=== PATIENT | male | born 1940 | race American Indian/Alaskan Native ===

== ENCOUNTER 2020-05-18 06:24 | Emergency (ER) | payer MEDICARE ==
--- NOTE | 2020-05-18 06:44 | Emergency Department Report ---
ED CPR HPI - General Stated Complaint: CARDIAC ARREST - History of Present Illness Initial Comments: This is a 79[facility]-old [facility] resident who was not seen since yesterday as per report of paramedics from [facility] staff. Patient was found by [facility] staff with no signs of life. I do not know if CPR was initiated. Medics responded quickly to the nearby [facility]. They state they found the patient with fixed and dilated pupils, in asystole, diagnosed with no signs of life. Not withstanding this, full resuscitative efforts ensued. After 4 rounds of epinephrine on more than 20 minutes in transport, medics report the patient remained in asystole with fixed and dilated pupils and never sustained any return of spontaneous circulation. 1 arrival there are no signs of life. The patient is asystole. There are fixed and dilated pupils. He was pronounced DOA. Further resuscitative efforts were deemed futile. Complaint: found unresponsive -: hour(s) (Likely), unknown Place: [facility] AED Applied by Bystander/Carrier Operator: No Initial Findings in the Field: systole (Asystole with no signs of life) ROSC in the Field: No Associated Injuries: No Associated Symptoms: other (Apparent demise during sleep) Treatments Prior to Arrival: intubation, epinephrine mgs #, atropine mgs # ED Review of Systems ROS: Stated complaint: CARDIAC ARREST Other details as noted in HPI Comment: Unobtainable due to pts medical conditions ED Past Medical Hx - Past Medical History Previous Medical History?: Yes Additional medical history: No prior records are currently available - Social History Other Social History: long term resident ED Physical Exam - General Limitations: Other General appearance: other (No signs of life) - Head Head exam: Present: atraumatic - Eye Pupils: Present: other (Fixed dilated) - ENT ENT exam: Present: other (Oral endotracheal intubation) - Neck Neck exam: Present: normal inspection - Respiratory Respiratory exam: Present: rhonchi, other (Likely multiple rib fractures secondary to CPR) - Cardiovascular Cardiovascular Exam: Present: other (No heart sounds) - GI/Abdominal GI/Abdominal exam: Present: soft - Extremities Exam Extremities exam: Present: normal inspection (No gross deformity) - Back Exam Back exam: Present: other (Not examined) - Neurological Exam Neurological exam: Present: other (GCS is 3) ED Course - Reevaluation(s) Reevaluation #1: As above pronounced DOA. 03/17/21 06:49 05/18/20 06:50 Family counseling as available. Records reviewed as available. Routine report to pump runner per nursing. Critical care attestation.: If time is entered above; I have spent that time in minutes in the direct care of this critically ill patient, excluding procedure time. ED Disposition Clinical Impression: Cardiac arrest Disposition: DC-20 Is pt being admited?: No Does the pt Need Aspirin: No Condition: Stable Time of Disposition: 08:06
== END 2020-05-18 07:35 ==
LOC: ED 06:24
DX: I46.9 Cardiac arrest, cause unspecified (principal)